=== PATIENT | male | born 1985 | race Caucasian/White ===

== ENCOUNTER → 2020-08-15 16:42 | Outpatient (CLI) | payer OTHER, SELFPAY ==
[2020-08-15 17:11] LABS: Basophils % 0.5 % (0.1-2.0); Eosinophils # 0.1 K/mm3 (0.0-0.4); Eosinophils % 1.4 % (0.1-12.0); Hematocrit 43.8 % (42.0-52.0); Hemoglobin 14.8 g/dL (14.1-18.0); Lymphocytes # 2.1 K/mm3 (0.7-4.5); Lymphocytes % 22.8 % (10-50); Mean Corpuscular HGB Conc 33.7 g/dL (31.8-35.4); Mean Corpuscular Hemoglobin 29.2 pg (27.0-31.2); Mean Corpuscular Volume 86.7 fl (80-94); Mean Platelet Volume 7.8 fl (7.4-10.4); Monocytes # 0.5 K/mm3 (0.1-1.0); Neutrophils # 6.5 K/mm3 (1.8-7.8); Neutrophils % 70.4 % (37.0-80.0); Platelet Count 287 K/mm3 (142-424); Red Blood Count 5.05 M/mm3 (4.60-6.20); Red Cell Distribution Width 13.4 % (11.5-17.5); White Blood Count 9.2 K/mm3 (4.8-10.8)
[2020-08-15 17:34] LABS: Chloride 104 mmol/L (98-107); Potassium 4.7 mmoL/L (3.5-5.1); Sodium 138 mmol/L (136-145)
[2020-08-15 17:36] LABS: Alanine Aminotransferase 13 U/L (12-78); Aspartate Amino Transferase 28 U/L (17-59); Blood Urea Nitrogen 13 mg/dl (9-20); Estimated Glomerular Filt Rate 111 ml/min (>60); GFR (African American) 135 ML/MIN (>60)
[2020-08-15 17:37] LABS: Albumin Level 4.6 g/dl (3.5-5.0); Albumin/Globulin Ratio 1.7 (1.1-1.8); Alkaline Phosphatase 119 U/L (38-126); Anion Gap 11.7 mEq/L (5-15); Bilirubin,Total 0.6 mg/dl (0.2-1.3); Calcium 9.9 mg/dl (8.4-10.2); Carbon Dioxide 27 mmol/L (22.0-30.0); Chol/HDL Ratio 5.8 (1-3.5); Cholesterol 210 mg/dl (140-200); Globulin 2.7 g/dL (1.3-3.2); Glucose 100 mg/dl (74-100); HDL Cholesterol 36 mg/dl (40-60); Total Protein,Serum 7.3 g/dl (6.3-8.2); Triglycerides 103 mg/dl (30-150); VLDL Cholesterol 21 mg/dL (0-40)
[2020-08-15 17:42] LABS: 25-OH Vitamin D, Total 27.7 ng/mL (30-100); Free T4 (Free Thyroxine) 1.23 ng/dl (0.78-2.19)
[2020-08-15 17:49] LABS: Direct LDL Cholesterol 144.88 mg/dL (100-129)
[2020-08-15 18:05] LABS: Thyroid Stimulating Hormone 2.49 uIU/mL (0.465-4.68)
== END ==
PROVIDERS: Visit Provider Nurse Practitioner Family
DX: M79.641 Pain in right hand (principal); M79.642 Pain in left hand; R20.0 Anesthesia of skin; R53.83 Other fatigue; E55.9 Vitamin D deficiency, unspecified; I10 Essential (primary) hypertension; Z72.0 Tobacco use
CPT/HCPCS: 80053; 80061; 82306; 84439; 84443; 85025

== ENCOUNTER 2022-12-25 17:17 | Emergency (ER) | payer SELFPAY ==
[2022-12-25 17:20] VITALS: BP 169/100; PULSE 117; RESP 18; TEMP 36.9; O2SAT 96; BMI 42.5
[2022-12-25 17:30] VITALS: BP 134/76; PULSE 88; O2SAT 96
--- NOTE | 2022-12-25 17:31 | PC.NURSE ---
Spoke with Lula from [facility] to obtain medical records. She advised it may be a while.
[2022-12-25 18:00] VITALS: BP 129/79; PULSE 68; O2SAT 96
--- NOTE | 2022-12-25 18:36 | HMH.EDGENADL ---
Discharge Plan Disposition Patient Disposition: Home, Self-Care Prescriptions Prescriptions: New ibuprofen 800 mg tablet 800 mg PO TID PRN (Reason: pain) 7 Days Qty: 20 0RF cyclobenzaprine 10 mg tablet 10 mg PO TID PRN (Reason: muscle spasm) 5 Days Qty: 15 0RF No Action prednisone 20 mg tablet 20 mg PO BID 5 Days Qty: 10 0RF naproxen 500 mg tablet 500 mg PO BID Qty: 30 0RF Referrals Follow up/Referrals: Provider,Referral, MD [Primary Care Provider] - See instructions Activity Restrictions/Add. Instructions Additional Instructions/Restrictions: Turn with any of the red flag symptoms that we discussed that would require emergent MRI or imaging and possible surgical intervention. Otherwise follow-up with primary care doctor for physical therapy and return with any worsening symptoms. Clinical Impressions Clinical Impression: Lumbosacral strain Discharge ED Provider: Jalyn Meyer General Adult HPI General Chief complaint: PAIN Stated complaint: back pain, no accident Time Seen by Provider: 12/25/22 18:13 Mode of Arrival: Wheelchair Source of Information: Patient Limitations: No Limitations Description of Symptoms (Recalled from ER Triage Doc. by RN): Patient reports left lower back pain for 4 days. States he was seen at the ER in [place] yesterday for the same complaint. States he got a shot of tordol and percocet but the pain is getting worse and he can't lay down or move very much because his back goes into spasms. History of Present Illness HPI narrative: Patient is a 37-year-old male here with left lumbosacral pain paraspinal. States this been going on for for 5 days. 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 It is localized nonradiating. He denies any lower extremity weakness, saddle anesthesia, urinary or bowel incontinence, urinary retention, any history of injection drug use, fever, or history of personal cancer. Was actually recently at the emergency department yesterday [place] was given Percocet but already took all of his medications to our emergency department tonight. Related Data Previous Rx's Medication Instructions Recorded naproxen 500 mg tablet 500 mg PO BID #30 tabs 08/15/20 prednisone 20 mg tablet 20 mg PO BID 5 days #10 tabs 08/15/20 cyclobenzaprine 10 mg tablet 10 mg PO TID PRN muscle spasm 5 12/25/22 days #15 tabs ibuprofen 800 mg tablet 800 mg PO TID PRN pain 7 days #20 12/25/22 tabs Allergies Allergy/AdvReac Type Severity Reaction Status Date / Time No Known Allergies Allergy Unverified 08/15/20 14:01 [facility] Disclaimer: The information contained in this section may have been updated after the patient was seen, as this information can be updated by other users. Social History Smoking Status: Current every day smoker tobacco type: cigarettes packs per day: 1 and e-cigarettes alcohol intake: never substance use type: denies use current occupational status: employed Travel in the last 8 weeks: Inside the [place] ROS Obtained: Yes All systems reviewed & no additional complaints except as documented Physical Exam General General appearance: alert and in no apparent distress Respiratory Respiratory exam: Present normal lung sounds bilaterally; Absent respiratory distress Cardiovascular Cardiovascular exam: Present regular rate; Absent tachycardia Back Exam Back exam: Present tenderness (There is no midline lumbar spine tenderness there is paraspinal muscular tenderness over the left lumbosacral region normal lower extremity strength and sensation) Neurological Exam Neurological exam: Present alert and oriented X3 Medical Decision Making Roddy Inquiry Pt receiving controlled substance: No Vital Signs: 12/25/22 17:20 12/25/22 17:30 12/25/22 18:00 Temperature 98.4 F [place]
[2022-12-25 18:45] VITALS: BP 131/83; PULSE 85; RESP 18; TEMP 36.8; O2SAT 96
== END 2022-12-25 19:00 | disposition home or self-care (01) ==
PROVIDERS: Emergency Provider Student in an Organized Health Care Education/Training Program
DX: S39.012A Strain of muscle, fascia and tendon of lower back, initial encounter (principal); X50.0XXA Overexertion from strenuous movement or load, initial encounter; Y99.0 Civilian activity done for income or pay; F17.210 Nicotine dependence, cigarettes, uncomplicated
CPT/HCPCS: 96372; 99283